=== PATIENT | male | born 1995 | race Caucasian/White ===

== ENCOUNTER 2017-02-02 14:13 | Day surgery (SDC) | payer OTHER ==
[2017-02-01 17:52] VITALS: BMI 19.5
[2017-02-02] MEDS ORDERED: MIDAZOLAM HCL 2 MG/2 ML SINGLE DOSE VIAL ONE (15:13)
[2017-02-02] MEDS ORDERED: ONDANSETRON 4 MG/2 ML VIAL IVPUSH PRN (15:52)
[2017-02-02] MEDS ORDERED: oxyCODONE HCL 5 MG TABLET PO PRN (15:52)
[2017-02-02] MEDS ORDERED: ePHEDrine SULFATE 50 MG/1 ML AMPULE ONE (16:00)
[2017-02-02] MEDS ORDERED: LACTATED RINGERS SOLUTION 1,000 ML IV SCH (16:00)
[2017-02-02] MEDS ORDERED: BUPIVACAINE HCL/PF 2.5 MG/ML - 30 ML VIAL IJ ONE (16:54)
[2017-02-02] MEDS ORDERED: HYDROmorphone HCL/PF 1 MG/ML VIAL (FOR PYXIS CHARGING ONLY) ONE (17:33)
[2017-02-02] MEDS ORDERED: oxyCODONE HCL 5 MG TABLET ONE ×2 (18:47→19:17)
[2017-02-02 19:22] VITALS: TEMP 98
[2017-02-02 19:48] VITALS: BP 133/78; PULSE 74
--- NOTE | 2017-02-05 12:26 | OP ---
DATE OF OPERATION: 02/02/2017 PREOPERATIVE DIAGNOSIS: 1. Right index metacarpal displaced fracture. 2. Right long metacarpal fracture, displaced. POSTOPERATIVE DIAGNOSIS: 1. Right index metacarpal displaced fracture. 2. Right long metacarpal fracture, displaced. OPERATIVE PROCEDURE: 1. Open reduction internal fixation of right index metacarpal fracture. 2. Open reduction internal fixation of right long finger metacarpal fracture. SURGEON: Demetrius Chirinos MD PRODUCT SAFETY CONSULTANT: RUSH Sampson ANESTHESIA: General. COMPLICATIONS: None. ESTIMATED BLOOD LOSS: Minimal. INDICATIONS FOR PROCEDURE: The patient is a 21-year-old male with the above findings, indicated for operative treatment. The risks, benefits, and alternatives were discussed with the patient at length, and proper informed consent was obtained. PROCEDURE: After proper identification of the patient and the correct operative site, the patient was brought to the operating room and placed on the operating room table with prominences well padded. General anesthesia was provided by the anesthesiologist adequate for the procedure. Right upper extremity was prepped and draped in the usual sterile fashion with a well-padded tourniquet placed with a sterile prep. Esmarch bandage to exsanguinate the right upper extremity. Tourniquet was inflated to 250 mmHg. A longitudinal incision was made in the intermetacarpal spaces of the index and long fingers. The incision was taken sharply through the skin with blunt and sharp dissection through the subcutaneous tissues. An interval was made radial to the extensor tendons over the index metacarpal. The periosteum was elevated off of the fracture, fracture callus was removed, and the fracture was able to be reduced. An OsteoMed 2.6-mm 6-hole plate was then placed on the dorsal aspect of the metacarpal and fixed with bicortical screws, 3 in total, on each side of the fracture. This provided secure stable fixation of the fracture. The periosteum over the dorsum of the long finger metacarpal was then also developed, and fracture callus was removed. The fracture was able to be reduced. This fracture was more comminuted and required a 7-hole plate also filled with proximal and distal bicortical screws. This provided secure stable fixation in an anatomic position confirmed visually as well as radiographically. Blount of the fingers was found to be normal in the clinical examination of the hand, and full range of motion was achieved. Wound was irrigated with copious amounts of normal saline and repaired in layers using 4-0 Vicryl and 4-0 nylon sutures. Sterile dressings were applied. Splint was placed. The patient was reversed from anesthesia and brought to the recovery room in stable condition. He tolerated the procedure well. Sigifredo Herron, the assistant county attorney, was integral throughout this procedure. This procedure could not have been performed without a skilled operative assistant county attorney. Malini CANNON/[id number]
== END 2017-02-02 19:51 | disposition home or self-care (01) ==
LOC: FASU 14:13
PROVIDERS: ATTEND Orthopaedic Surgery Hand Surgery
PROC: 0PSP04Z Reposition Right Metacarpal with Internal Fixation Device, Open Approach (ICD-10-PCS; principal; 2017-02-02 15:54)
DX: S62.320A Displaced fracture of shaft of second metacarpal bone, right hand, initial encounter for closed fracture (principal); S62.322A Displaced fracture of shaft of third metacarpal bone, right hand, initial encounter for closed fracture; X58.XXXA Exposure to other specified factors, initial encounter; Y93.9 Activity, unspecified; Y92.9 Unspecified place or not applicable
CPT/HCPCS: 73130-TC-RT; 94760